=== PATIENT | male | born 1975 | race Hispanic/Latino ===

== ENCOUNTER 2020-07-05 16:34 | Outpatient (CLI) | payer BC ==
--- NOTE | 2020-07-05 16:49 | RAD ---
Left heel 2 views HISTORY: Pain. FINDINGS: Small Achilles enthesophyte at the posterior aspect of the calcaneus. Minimal osteoarthriti c change hindfoot. No acute erosions. Calcification over the arterial structures. IMPRESSION : Small Achilles' heel spur. Minimal degenerative changes. Atherosclerosis.
--- NOTE | 2020-07-05 16:51 | RAD ---
2 views right calcaneus: 07/05/2020 COMPARISON: None HISTORY: Heel pain FINDINGS: There is enthesophyte formation at the insertion of the Achilles tendon. Atherosclerotic ca lcification is seen anterior and posterior to the right ankle joint on the lateral view. No acute osseous abnormality. IMPRESSION: Calcaneal enthesophyte formation at the insertion of the Achilles tendon.
== END 2020-07-05 16:35 | disposition home or self-care (01) ==
LOC: BICRAD 16:34
PROVIDERS: ATTEND Podiatrist
DX: M76.60 Achilles tendinitis, unspecified leg (principal); M77.31 Calcaneal spur, right foot; I70.90 Unspecified atherosclerosis; M19.072 Primary osteoarthritis, left ankle and foot; M77.32 Calcaneal spur, left foot

== ENCOUNTER 2022-04-18 19:30 | Outpatient (CLI) | payer BC | END 2022-04-18 19:31 | disposition home or self-care (01) | LOC: SLEEPLAB 19:30 | PROVIDERS: ATTEND Internal Medicine | DX: G47.33 Obstructive sleep apnea (adult) (pediatric) (principal); R53.83 Other fatigue; R06.83 Snoring; I10 Essential (primary) hypertension; F41.9 Anxiety disorder, unspecified; E66.9 Obesity, unspecified; K21.9 Gastro-esophageal reflux disease without esophagitis; G47.00 Insomnia, unspecified; G47.10 Hypersomnia, unspecified; Z68.34 Body mass index [BMI] 34.0-34.9, adult | CPT/HCPCS: 95810 ==

== ENCOUNTER 2022-06-21 11:47 | Outpatient (CLI) | payer BC | END 2022-06-21 11:48 | disposition home or self-care (01) | LOC: BICRAD 11:47 | PROVIDERS: ATTEND Podiatrist | DX: M76.62 Achilles tendinitis, left leg (principal); M79.672 Pain in left foot ==